=== PATIENT | female | born 1955 | race Caucasian/White ===

== ENCOUNTER 2018-02-15 08:36 | Emergency (ER) | payer OTHER, BC ==
--- NOTE | 2018-02-15 08:45 | ED Physician Documentation ---
PD HPI UPPER EXT INJURY - Stated complaint Stated Complaint: R ARM INJ - History obtained from History obtained from: Patient, Family - History of Present Illness Location: Right, Elbow, Wrist Type of injury: Fall Where injury occurred: Other ([employer] parking lot) Timing - onset: Enter time (629), Today Timing - duration: Minutes Timing - details: Abrupt onset, Still present Improved by: Rest, Immobilization Worsened by: Moving, Palpating Associated symptoms: No: Weakness, Numbness, Tingling, Swelling, Discolored Contributing factors: No: Anticoagulated Similar symptoms before: Has not had sx before Recently seen: Not recently seen - Additonal information Additional information: 62 y/o female walking in to [employer] tripped over the curb, fell forward and landed on her outstretched right hand. She has an abrasion to the palm and pain to the wrist and elbow. Review of Systems Constitutional: denies: Fever Respiratory: denies: Cough GI: denies: Vomiting Musculoskeletal: reports: Extremity pain, Joint pain Neurologic: denies: Generalized weakness, Focal weakness, Numbness PD PAST MEDICAL HISTORY - Present Medications Home Medications: Ambulatory Orders Medication Instructions Recorded Confirmed Hydrocodone/Acetaminophen 1 - 2 each PO Q6H PRN #14 tablet 02/15/18 [Hydrocodon-Acetaminophen 5-325] - Allergies Allergies/Adverse Reactions: Allergies Allergy/AdvReac Type Severity Reaction Status Date / Time No Known Drug Allergies Allergy Verified 02/15/18 08:48 PD ED PE NORMAL - Vitals Vital signs reviewed: Yes - General General: Alert and oriented X 3, No acute distress, Well developed/nourished - HEENT HEENT: Atraumatic, PERRL - Neck Neck: Supple, no meningeal sign - Respiratory Respiratory: No respiratory distress - Derm Derm: Normal color, Warm and dry, No rash - Extremities Extremities: No deformity, No edema, Other (There is tenderness to the distal radius and over the radial head as well. She holds the arm in flexion and splints. There is an abrasion to the right knee with a 2cm laceration. The ligaments are stable to testing and there is no joint effusion. The distal n/v is intact. ) - Neuro Neuro: Alert and oriented X 3, roll finisher 2-12 intact, No motor deficit, No sensory deficit, Normal speech Eye Opening: Spontaneous Motor: Obeys Commands Verbal: Oriented GCS Score: 15 - Psych Psych: Normal mood, Normal affect Results - Vitals Vitals: Vital Signs - 24 hr 02/15/18 08:45 Temperature 36.6 C Heart Rate 78 Respiratory 16 Rate Blood Pressure 162/115 H O2 Saturation 99 Oxygen O2 Source Room air - Rads (name of study) wrist Radiology: Prelim report reviewed (Impression: 1. Cortical irregularity at the dorsum of the wrist suspicious for nondisplaced triquetral avulsion fracture. If there is snuffbox tenderness, or clinical suspicion of radiographically occult scaphoid fracture, immobilization with repeat radiograph in 7-10 days, or alternatively be MR, is recommended.), EMP read indepedently, See rad report elbow Radiology: Prelim report reviewed (Impression: 1. Acute radial neck fracture. 2. Elbow joint effusion), EMP read indepedently, See rad report Procedures - Laceration (location) knee right Length in cm: 2 Wound type: Linear Neurovascular status: Sensory intact, Motor intact, Vascular intact Anesthesia: Lidocaine 1%, With bicarb Wound Preparation: Hibiclens, Irrigated copiously NS, Wound explored, To the base Skin layer closure: Nylon, Interrupted, Size #-0 - enter number (4-0), Sutures - enter # (3) Other: Patient tolerated well, No complications, Neurovascular intact, Dressing applied, Tetanus booster given Complexity: Simple - Splint (location) left forearm Splint applied by: Tech Type of splint: Fiberglass, Sugar tong Other: Patient tolerated well, No complications, Neurovascular intact, Good alignment, Sling provided PD MEDICAL DECISION MAKING - ED course Complexity details: reviewed results, re-evaluated patient, considered differential, d/w patient, d/w family ED course: 62-year-old female with a fall at work today has a fracture of the triquetrum and the radial head. She is placed into a sugar tong splint and will follow-up with orthopedics. Departure - Departure Disposition: 01 Home, Self Care Clinical Impression: Radial head fracture, closed Qualifiers: Encounter type: initial encounter Fracture alignment: displaced Laterality: left Qualified Code(s): S52.122A - Displaced fracture of head of left radius, initial encounter for closed fracture Triquetral chip fracture Qualifiers: Encounter type: initial encounter Fracture type: closed Laterality: left Qualified Code(s): S62.112A - Displaced fracture of triquetrum [cuneiform] bone, left wrist, initial encounter for closed fracture Condition: Stable Instructions: ED Fx Upper Ext, ED Laceration Ext Sutr Stap Tape Follow-Up: [facility] [Provider Group] Prescriptions: Hydrocodone/Acetaminophen [Hydrocodon-Acetaminophen 5-325] 1 - 2 each PO Q6H PRN #14 tablet PRN Reason: pain Comments: Sutures should be removed in 7-10 days. Forms: Activity restrictions
[2018-02-15 08:48] VITALS: BP 162/115
--- NOTE | 2018-02-15 09:49 | XRAY Report ---
Reason: FOOSH wrist and elbow pain Procedure Date: 02/15/2018 Accession Number: [id number] / [id number] Procedure: XR - Wrist 4 View RT CPT Code: FULL RESULT: EXAM: RIGHT WRIST RADIOGRAPHY EXAM DATE: 02/15/2018 09:15 AM. CLINICAL HISTORY: FOOSH wrist and elbow pain. COMPARISON: None. TECHNIQUE: 4 views. FINDINGS: Bones: There is mild cortical irregularity at the dorsum of the wrist suspicious for a nondisplaced triquetral avulsion fracture. No other fractures are evident. Joints: Severe first CMC, triscaphe joint DJD. Soft Tissues: Unremarkable. IMPRESSION: 1. Cortical irregularity at the dorsum of the wrist suspicious for nondisplaced triquetral avulsion fracture. If there is snuff box tenderness, or clinical suspicion of radiographically occult scaphoid fracture, immobilization with repeat radiograph in 7-10 days, or alternatively MR, is recommended. RADIA
--- NOTE | 2018-02-15 09:51 | XRAY Report ---
Reason: FOOSH elbow pain Procedure Date: 02/15/2018 Accession Number: [id number] / [id number] Procedure: XR - Elbow 3 View RT CPT Code: FULL RESULT: EXAM: RIGHT ELBOW RADIOGRAPHY EXAM DATE: 02/15/2018 09:16 AM. CLINICAL HISTORY: FOOSH elbow pain. COMPARISON: None. TECHNIQUE: 3 views. FINDINGS: Bones: There is an acute, mildly displaced and angulated fracture of the radial neck. Joints: Elbow joint effusion is present. There is mild anterior radiocapitellar subluxation. Soft Tissues: Unremarkable. IMPRESSION: 1. Acute radial neck fracture. 2. Elbow joint effusion. RADIA
[2018-02-15] MEDS ORDERED: BUFFERED LIDOCAINE 10 ML SYRINGE SUBQ STA (10:39)
[2018-02-15] MEDS ORDERED: TETANUS/DIPHTHERIA/PERTUSSIS 0.5 ML SYRINGE IM ONE (11:20)
== END 2018-02-15 12:00 | disposition home or self-care (01) ==
LOC: ED 08:36
DX: S52.122A Displaced fracture of head of left radius, initial encounter for closed fracture (principal); S62.112A Displaced fracture of triquetrum [cuneiform] bone, left wrist, initial encounter for closed fracture; S81.011A Laceration without foreign body, right knee, initial encounter; W18.09XA Striking against other object with subsequent fall, initial encounter; Y92.481 Parking lot as the place of occurrence of the external cause; Z23 Encounter for immunization
CPT/HCPCS: 12001; 29105; 90471; 99283